=== PATIENT | male | born 1960 | race Caucasian/White ===

== ENCOUNTER 2018-01-24 19:34 | Outpatient (CLI) | END 2018-01-24 19:55 | disposition hospice, inpatient (51) | LOC: AMBL 19:34 | PROVIDERS: ATTEND Family Medicine | DX: R53.1 Weakness (principal); R52 Pain, unspecified; R41.0 Disorientation, unspecified; I95.9 Hypotension, unspecified; R17 Unspecified jaundice; S50.12XA Contusion of left forearm, initial encounter; S50.11XA Contusion of right forearm, initial encounter; S51.812A Laceration without foreign body of left forearm, initial encounter; S51.811A Laceration without foreign body of right forearm, initial encounter; Z51.5 Encounter for palliative care ==